=== PATIENT | female | born 1960 | race Caucasian/White ===

== ENCOUNTER 2021-01-31 20:55 | Emergency (ER) | payer OTHER ==
[2021-01-31] MEDS ORDERED: Acetaminophen 500 MG TAB ONE (21:49)
[2021-01-31] MEDS ORDERED: Metoclopramide HCl 10 MG/2 ML VIAL ONE (21:49)
[2021-01-31] MEDS ORDERED: Ketorolac Tromethamine 30 MG/ML VIAL ONE (21:51)
[2021-01-31] MEDS ORDERED: diphenhydrAMINE 12.5 MG/5 ML UDCUP ONE (21:51)
[2021-01-31] MEDS ORDERED: diphenhydrAMINE 50 MG/ML VIAL ONE (21:52)
[2021-01-31 23:13] LABS: ALT (SGPT) 25 U/L (8-55); AST (SGOT) 21 U/L (5-34); Albumin 4.2 g/dL (3.5-5.0); Alkaline Phosphatase 65 U/L (40-110); Anion Gap 17 mmol/L (10-20); BUN (Urea Nitrogen) 29 mg/dL (9.8-20.1); Bilirubin, Total 0.5 mg/dL (0.2-1.2); Calc. Creatinine Clearance 0 mL/min (70-130); Calcium 11.6 mg/dL (7.8-10.44); Carbon Dioxide 23 mmol/L (22-29); Chloride 103 mmol/L (98-107); Globulin 2.4 g/dL (2.4-3.5); Glucose 97 mg/dL (70-105); Potassium 3.7 mmol/L (3.5-5.1); Protein, Total 6.6 g/dL (6.0-8.3); Sodium 139 mmol/L (136-145)
[2021-02-01] MEDS ORDERED: hydrALAZINE 20 MG/ML VIAL ONE (00:37)
== END 2021-02-01 02:21 | disposition short-term general hospital (02) ==
LOC: ERS 20:55
DX: I12.9 Hypertensive chronic kidney disease with stage 1 through stage 4 chronic kidney disease, or unspecified chronic kidney disease (principal); N18.30 Chronic kidney disease, stage 3 unspecified; N17.9 Acute kidney failure, unspecified; E78.5 Hyperlipidemia, unspecified; Z86.73 Personal history of transient ischemic attack (TIA), and cerebral infarction without residual deficits; Z79.899 Other long term (current) drug therapy
CPT/HCPCS: 36415; 80053; 84484; 93005; 96365; 96375; J0360; J1200; J1885; J2765; Q0163

== ENCOUNTER 2021-11-16 12:15 | Inpatient (IN) | payer OTHER, MEDICARE ==
[2021-11-20] MEDS ORDERED: Thrombin 5000 UNITS/5 ML VIAL ONE (06:54)
[2021-11-20] MEDS ORDERED: Fentanyl 250 MCG/5 ML VIAL ONE (06:55)
[2021-11-20] MEDS ORDERED: ceFAZolin (BATCH) 2 GM/100 ML BAG ONE (07:12)
[2021-11-20] MEDS ORDERED: Famotidine/PF 20 mg/2ml Vial ONE (07:23)
[2021-11-20] MEDS ORDERED: Scopolamine 1.5 mg/72 hour Patch ONE (07:23)
[2021-11-20] MEDS ORDERED: Lidocaine 1% PF 5 ML VIAL ONE ×2 (07:24)
[2021-11-20] MEDS ORDERED: Ondansetron PF 4 MG/2 ML Vial ONE (07:24)
[2021-11-20] MEDS ORDERED: Glycopyrrolate 0.2 MG/ML 5 ML SYRINGE ONE (07:24)
[2021-11-20] MEDS ORDERED: Rocuronium Bromide 10 MG/ML (10ML VIAL) ONE (07:24)
[2021-11-20] MEDS ORDERED: diphenhydrAMINE 50 MG/ML VIAL ONE (07:24)
[2021-11-20] MEDS ORDERED: Dexamethasone 20 MG/5 ML VIAL ONE (07:24)
[2021-11-20] MEDS ORDERED: PROPOFOL 200 MG/20 ML VIAL ONE (07:24)
[2021-11-20] MEDS ORDERED: Promethazine HCl 25 MG/ML VIAL IVPB PRN (09:46)
[2021-11-20] MEDS ORDERED: Promethazine HCl 25 MG/ML VIAL IM PRN (09:46)
[2021-11-20] MEDS ORDERED: Ondansetron HCl/PF 4 MG/2 ML Vial IVP PRN (09:46)
[2021-11-20] MEDS ORDERED: Ondansetron PF 4 MG/2 ML Vial IVP PRN (09:55)
[2021-11-20] MEDS ORDERED: Acetaminophen/Codeine 30-300mg Tablet PO PRN (09:55)
[2021-11-20] MEDS ORDERED: HYDROcodone/Acetaminophen 7.5/325 mg Tablet PO PRN (09:55)
[2021-11-20] MEDS ORDERED: traMADol HCl 50 MG TAB PO PRN (09:55)
[2021-11-20] MEDS ORDERED: Acetaminophen 325 MG TAB PO PRN (09:55)
[2021-11-20] MEDS ORDERED: Fentanyl 100 MCG/2 ML VIAL ONE ×3 (10:21→11:34)
[2021-11-20] MEDS: diphenhydrAMINE 25 MG CAP PO PRN (12:33)
[2021-11-20] MEDS: Morphine 2 MG/ML VIAL SLOW IVP PRN ×3 (12:33→21:14)
[2021-11-20] MEDS: Sodium Chloride 0.9% 1,000 ML IV SCH ×2 (13:04→22:55)
[2021-11-20] MEDS: tiZANidine HCl 4 MG TAB PO PRN (13:15)
[2021-11-20] MEDS: Gabapentin 300 MG CAP PO SCH ×2 (13:59→21:16)
[2021-11-20] MEDS: Dexamethasone 1 MG TAB PO SCH ×2 (14:11→21:27)
[2021-11-20] MEDS: ceFAZolin (BATCH) 2 GM in Premix Bag 1 BAG IVPB SCH ×2 (14:11→22:54)
[2021-11-20] MEDS: Cholecalciferol 1,000 UNITS (25 MCG) TAB PO SCH (21:16)
[2021-11-20] MEDS: Losartan 25 MG TAB PO SCH (21:16)
[2021-11-20] MEDS: NIFEdipine XL 60 MG TAB PO SCH (21:16)
[2021-11-20] MEDS: Atorvastatin Calcium 10 MG TAB PO SCH (21:17)
[2021-11-20] MEDS: Carvedilol 6.25 MG TAB PO SCH (21:17)
[2021-11-20] MEDS: Bupropion 100 MG SR TAB PO SCH (21:27)
[2021-11-20] MEDS: hydrALAZINE 20 MG/ML VIAL SLOW IVP PRN (23:26)
[2021-11-21] MEDS: Morphine 2 MG/ML VIAL SLOW IVP PRN ×5 (01:13→19:56)
[2021-11-21] MEDS: diphenhydrAMINE 25 MG CAP PO PRN (04:56)
[2021-11-21] MEDS: hydrALAZINE 20 MG/ML VIAL SLOW IVP PRN (06:45)
[2021-11-21] MEDS: ceFAZolin (BATCH) 2 GM in Premix Bag 1 BAG IVPB SCH ×2 (07:48→14:43)
[2021-11-21] MEDS ORDERED: Labetalol HCl 100 MG/20 ML VIAL SLOW IVP PRN (07:52)
[2021-11-21] MEDS ORDERED: hydrALAZINE 20 MG/ML VIAL SLOW IVP PRN (07:53)
[2021-11-21] MEDS ORDERED: HYDROcodone/Acetaminophen 7.5/325 mg Tablet PO PRN (07:54)
[2021-11-21] MEDS: Bupropion 100 MG SR TAB PO SCH ×2 (09:43→21:00)
[2021-11-21] MEDS: Ascorbic Acid 500 mg Chewable Tablet PO SCH (09:43)
[2021-11-21] MEDS: Cholecalciferol 1,000 UNITS (25 MCG) TAB PO SCH ×2 (09:43→20:59)
[2021-11-21] MEDS: Dexamethasone 1 MG TAB PO SCH ×3 (09:43→21:00)
[2021-11-21] MEDS: Gabapentin 300 MG CAP PO SCH ×3 (09:44→20:58)
[2021-11-21] MEDS: Carvedilol 6.25 MG TAB PO SCH ×2 (09:44→21:04)
[2021-11-21] MEDS ORDERED: cloNIDine 0.1 MG TAB PO SCH (11:00)
[2021-11-21] MEDS: Sodium Chloride 0.9% 1,000 ML IV SCH (12:55)
[2021-11-21] MEDS: tiZANidine HCl 4 MG TAB PO PRN (13:03)
[2021-11-21] MEDS ORDERED: Diazepam 5 MG TAB PO SCH (14:00)
[2021-11-21] MEDS ORDERED: Promethazine 25 MG TAB PO PRN ×2 (19:19→20:15)
[2021-11-21] MEDS: Atorvastatin Calcium 10 MG TAB PO SCH (20:58)
[2021-11-21] MEDS: NIFEdipine XL 60 MG TAB PO SCH (21:03)
[2021-11-21] MEDS: cloNIDine 0.1 MG TAB PO SCH (21:04)
[2021-11-21] MEDS: Losartan 25 MG TAB PO SCH (21:04)
[2021-11-21] MEDS: Diazepam 5 MG TAB PO PRN (23:10)
[2021-11-22] MEDS: Sodium Chloride 0.9% 1,000 ML IV SCH (00:37)
[2021-11-22] MEDS: Morphine 2 MG/ML VIAL SLOW IVP PRN ×2 (02:15→05:30)
[2021-11-22 08:50] VITALS: BP 159/75; TEMP 97.3
[2021-11-22] MEDS: cloNIDine 0.1 MG TAB PO SCH (08:56)
[2021-11-22] MEDS: Carvedilol 6.25 MG TAB PO SCH (08:56)
[2021-11-22] MEDS: Cholecalciferol 1,000 UNITS (25 MCG) TAB PO SCH (08:56)
[2021-11-22] MEDS: Gabapentin 300 MG CAP PO SCH (08:57)
[2021-11-22] MEDS: Dexamethasone 1 MG TAB PO SCH (08:58)
[2021-11-22] MEDS: Ascorbic Acid 500 mg Chewable Tablet PO SCH (08:58)
[2021-11-22] MEDS: Bupropion 100 MG SR TAB PO SCH (08:58)
[2021-11-22] MEDS: Diazepam 5 MG TAB PO PRN (10:12)
== END 2021-11-22 10:43 | disposition home or self-care (01) | DRG 29 ==
LOC: SURG A 11-20 05:45 → MSONC 11-20 12:11
PROVIDERS: ADMIT Surgery; ATTEND Surgery
PROC: 0RG20A0 Fusion of 2 or more Cervical Vertebral Joints with Interbody Fusion Device, Anterior Approach, Anterior Column, Open Approach (ICD-10-PCS; principal; 2021-11-20)
PROC: 0RB30ZZ Excision of Cervical Vertebral Disc, Open Approach (ICD-10-PCS; 2021-11-20)
DX: M54.12 Radiculopathy, cervical region (principal); G99.2 Myelopathy in diseases classified elsewhere; M48.02 Spinal stenosis, cervical region; M50.20 Other cervical disc displacement, unspecified cervical region
CPT/HCPCS: 36415; 76000; 86850; 86900; 86901; 86922; C1713; C1768; C1776; J0360; J0690; J1100; J1200; J2270; J2405; J2704; J3010; J7050; J8540; Q0169; S0028

== ENCOUNTER 2021-12-31 10:20 | Outpatient (CLI) | payer OTHER, MEDICARE | END 2021-12-31 10:21 | disposition home or self-care (01) | LOC: RAD 10:20 | PROVIDERS: ATTEND Surgery | DX: M47.22 Other spondylosis with radiculopathy, cervical region (principal); Z98.1 Arthrodesis status | CPT/HCPCS: 72040 ==

== ENCOUNTER 2022-01-14 11:02 | Outpatient (CLI) | payer OTHER, MEDICARE | END 2022-01-14 11:03 | disposition home or self-care (01) | LOC: RAD 11:02 | PROVIDERS: ATTEND Surgery | DX: M47.26 Other spondylosis with radiculopathy, lumbar region (principal) | CPT/HCPCS: 72100 ==

== ENCOUNTER 2022-04-02 10:41 | Outpatient (CLI) | payer OTHER, MEDICARE ==
[2022-04-02 12:03] LABS: Hemoglobin 11.7 g/dL (12.0-15.5); Mean Corpuscular HGB CONC 32.1 g/dL (32.0-36.0); Mean Corpuscular Hemoglobin 29.7 pg (27.0-33.0); Mean Corpuscular Volume 92.6 fl (81.6-98.3); Mean Platelet Volume 10.1 fl (7.4-10.4); Platelet Count 267 10x3/uL (150-450); RBC Distribution Width 11.9 % (11.5-14.5); Red Blood Cell (RBC) Count 3.94 10x6/uL (3.90-5.03); White Blood Cell (WBC) Count 4.2 10x3/uL (3.5-10.5)
[2022-04-02 12:10] LABS: Anion Gap 13 mmol/L (10-20); BUN (Urea Nitrogen) 22 mg/dL (9.8-20.1); Calc. Creatinine Clearance 0 mL/min (70-130); Calcium 10.9 mg/dL (7.8-10.44); Carbon Dioxide 27 mmol/L (23-31); Chloride 107 mmol/L (98-107); Estimated GFR 42; Glucose 150 mg/dL (80-115); INR-International Normal Ratio 0.9; PTT 21.9 sec (22.0-33.0); Potassium 4.2 mmol/L (3.5-5.1); Prothrombin Time 9.4 sec (9.5-12.1); Sodium 143 mmol/L (136-145)
== END 2022-04-02 10:42 | disposition home or self-care (01) ==
LOC: LABBT 10:41
PROVIDERS: ATTEND Surgery
DX: Z01.818 Encounter for other preprocedural examination (principal); M54.16 Radiculopathy, lumbar region; M48.062 Spinal stenosis, lumbar region with neurogenic claudication; Z20.822 Contact with and (suspected) exposure to COVID-19
CPT/HCPCS: 80048; 85027; 85610; 85730; 87811; 93005; 93010

== ENCOUNTER 2022-04-05 06:05 | Observation (INO) | payer OTHER, MEDICARE ==
[2022-04-03 15:33] VITALS: BMI 33.2
[2022-04-05] MEDS ORDERED: Thrombin 5000 UNITS/5 ML VIAL ONE ×2 (06:34→09:06)
[2022-04-05] MEDS ORDERED: fentaNYL Citrate/PF 100 MCG/2 ML SYRINGE ONE (06:42)
[2022-04-05] MEDS ORDERED: Sodium Chloride 0.9% 100 ML ONE (07:22)
[2022-04-05] MEDS ORDERED: CEFAZOLIN 2 GM VIAL ONE (07:22)
[2022-04-05] MEDS ORDERED: ePHEDrine 50 MG/ML VIAL ONE (07:43)
[2022-04-05] MEDS ORDERED: PROPOFOL 200 MG/20 ML VIAL ONE (07:43)
[2022-04-05] MEDS ORDERED: NEOSTIGMINE 3 MG/3 ML SYR 3 MG/3 ML SYRINGE ONE (07:43)
[2022-04-05] MEDS ORDERED: Lidocaine 1% MPF 2 ML VIAL ONE (07:43)
[2022-04-05] MEDS ORDERED: Ondansetron PF 4 MG/2 ML Vial ONE (07:43)
[2022-04-05] MEDS ORDERED: Dexamethasone 20 MG/5 ML VIAL ONE (07:43)
[2022-04-05] MEDS ORDERED: Glycopyrrolate 0.2 MG/ML 5 ML SYRINGE ONE (07:43)
[2022-04-05] MEDS ORDERED: Rocuronium Bromide 10 MG/ML (10ML VIAL) ONE (07:43)
[2022-04-05] MEDS ORDERED: Phenylephrine 10 MG/ML VIAL ONE (07:43)
[2022-04-05] MEDS ORDERED: Promethazine HCl 25 MG/ML VIAL IVPB PRN (09:31)
[2022-04-05] MEDS ORDERED: Ondansetron HCl/PF 4 MG/2 ML Vial IVP PRN (09:31)
[2022-04-05] MEDS ORDERED: Promethazine HCl 25 MG/ML VIAL IM PRN (09:31)
[2022-04-05] MEDS ORDERED: Fentanyl 100 MCG/2 ML VIAL SLOW IVP PRN (09:34)
[2022-04-05] MEDS ORDERED: Ondansetron PF 4 MG/2 ML Vial IVP PRN (09:34)
[2022-04-05] MEDS ORDERED: traMADol HCl 50 MG TAB PO PRN (09:34)
[2022-04-05] MEDS ORDERED: Acetaminophen 325 MG TAB PO PRN (09:34)
[2022-04-05] MEDS ORDERED: Fentanyl 100 MCG/2 ML VIAL ONE ×2 (09:35→09:50)
[2022-04-05] MEDS ORDERED: hydrALAZINE 20 MG/ML VIAL SLOW IVP PRN (09:38)
[2022-04-05] MEDS ORDERED: Promethazine HCl 25 MG/ML VIAL ONE (09:57)
[2022-04-05] MEDS: Sodium Chloride 0.9% 1,000 ML IV SCH (11:48)
[2022-04-05] MEDS: Ketorolac Tromethamine 30 MG/ML VIAL IVP PRN ×2 (11:48→20:43)
[2022-04-05] MEDS: tiZANidine HCl 4 MG TAB PO PRN (14:04)
[2022-04-05] MEDS: Acetaminophen/Codeine 30-300mg Tablet PO PRN (14:09)
[2022-04-05] MEDS ORDERED: Acetaminophen/Codeine 30-300mg Tablet PO PRN (15:01)
[2022-04-05] MEDS ORDERED: cloNIDine 0.1 MG TAB PO PRN (15:09)
[2022-04-05] MEDS: Gabapentin 300 MG CAP PO SCH ×2 (16:14→20:31)
[2022-04-05] MEDS: CEFAZOLIN 2 GM in Sodium Chloride 0.9% 100 ML IVPB SCH ×2 (16:15→23:42)
[2022-04-05] MEDS: diphenhydrAMINE 25 MG CAP PO PRN ×2 (16:20→22:15)
[2022-04-05] MEDS: Morphine 2 MG/ML VIAL SLOW IVP PRN ×2 (16:20→22:14)
[2022-04-05] MEDS: Mometasone 100 MCG/PUFF (1 INHALER) INH SCH (18:21)
[2022-04-05] MEDS ORDERED: Promethazine HCl 12.5 MG in Sodium Chloride 0.9% 50 ML IVPB PRN (19:08)
[2022-04-05] MEDS: Bupropion 100 MG SR TAB PO SCH (20:32)
[2022-04-05] MEDS: Carvedilol 3.125 MG TAB PO SCH (20:33)
[2022-04-05] MEDS: Cholecalciferol 1,000 UNITS (25 MCG) TAB PO SCH (20:33)
[2022-04-05] MEDS ORDERED: Atorvastatin Calcium 10 MG TAB PO SCH (21:00)
[2022-04-05] MEDS ORDERED: Losartan 25 MG TAB PO SCH (21:00)
[2022-04-05] MEDS ORDERED: NIFEdipine XL 60 MG TAB PO SCH (21:00)
[2022-04-06] MEDS: Sodium Chloride 0.9% 1,000 ML IV SCH ×2 (00:11→07:56)
[2022-04-06] MEDS: diphenhydrAMINE 25 MG CAP PO PRN (04:02)
[2022-04-06] MEDS: Morphine 2 MG/ML VIAL SLOW IVP PRN (04:02)
[2022-04-06] MEDS: Mometasone 100 MCG/PUFF (1 INHALER) INH SCH (07:44)
[2022-04-06] MEDS: Carvedilol 3.125 MG TAB PO SCH (07:50)
[2022-04-06] MEDS: Bupropion 100 MG SR TAB PO SCH (07:50)
[2022-04-06] MEDS: Gabapentin 300 MG CAP PO SCH (07:50)
[2022-04-06] MEDS: Cholecalciferol 1,000 UNITS (25 MCG) TAB PO SCH (07:52)
[2022-04-06] MEDS: HYDROcodone/Acetaminophen 7.5/325 mg Tablet PO PRN ×2 (07:52→13:39)
[2022-04-06] MEDS ORDERED: Ascorbic Acid 500 mg Chewable Tablet PO SCH (09:00)
[2022-04-06] MEDS: tiZANidine HCl 4 MG TAB PO PRN (09:52)
[2022-04-06] MEDS: Acetaminophen/Codeine 30-300mg Tablet PO PRN (09:52)
[2022-04-06 13:45] VITALS: BP 104/66; TEMP 97.8
== END 2022-04-06 14:10 | disposition home or self-care (01) ==
LOC: SDC 06:05 → SURG B 10:53
PROVIDERS: ADMIT Surgery; ATTEND Surgery
PROC: 01NB0ZZ Release Lumbar Nerve, Open Approach (ICD-10-PCS; principal; 2022-04-06)
DX: M48.062 Spinal stenosis, lumbar region with neurogenic claudication (principal); M54.16 Radiculopathy, lumbar region; Z79.82 Long term (current) use of aspirin; Z79.899 Other long term (current) drug therapy; Z88.1 Allergy status to other antibiotic agents
CPT/HCPCS: 76000; 96374; 96375; 96376; G0378; J0690; J1100; J1885; J2270; J2370; J2405; J2550; J2704; J3010; J3370; J3490; J7050; J7620

== ENCOUNTER 2022-06-19 13:33 | Emergency (ER) | payer OTHER ==
[2022-06-19 14:16] LABS: #Lymphocytes 1.4 thou/uL (1.20-3.40); #Monocytes 0.6 thou/uL (0.11-0.59); #Neutrophils 3.2 thou/uL (1.40-6.50); %Basophils 0.2 % (0.0-1.0); %Eosinophils 0.8 % (0.0-10.0); %Lymphocytes 26.3 % (21.0-51.0); %Monocytes 11.2 % (0.0-10.0); %Neutrophils 61.5 % (42.0-75.0); Hemoglobin 10.9 g/dL (12.0-16.0); Mean Corpuscular HGB CONC 33.3 g/dL (32.0-36.0); Mean Corpuscular Hemoglobin 30.9 pg (27.0-31.0); Mean Corpuscular Volume 92.9 fl (78.0-98.0); Mean Platelet Volume 8.6 fL (7.4-10.4); Platelet Count 161 10x3/uL (130-400); RBC Distribution Width 12.1 % (11.5-14.5); Red Blood Cell (RBC) Count 3.51 mill/uL (4.20-5.40); White Blood Cell (WBC) Count 5.2 10x3/uL (4.8-10.8)
[2022-06-19 14:32] LABS: ALT (SGPT) 18 U/L (8-55); AST (SGOT) 15 U/L (5-34); Albumin 4.4 g/dL (3.4-4.8); Alkaline Phosphatase 113 U/L (40-110); Anion Gap 13 mmol/L (10-20); BUN (Urea Nitrogen) 22 mg/dL (9.8-20.1); Bilirubin, Total 0.9 mg/dL (0.2-1.2); Calc. Creatinine Clearance 0 mL/min (70-130); Calcium 10.3 mg/dL (7.8-10.44); Carbon Dioxide 24 mmol/L (23-31); Chloride 105 mmol/L (98-107); Estimated GFR 38; Globulin 2.4 g/dL (2.4-3.5); Glucose 115 mg/dL (80-115); Protein, Total 6.8 g/dL (5.8-8.1); Sodium 138 mmol/L (136-145)
[2022-06-19 14:35] LABS: Troponin I Less than 0.010 ng/mL (< 0.028)
[2022-06-19 16:41] LABS: Magnesium 1.6 mg/dL (1.6-2.6)
== END 2022-06-19 17:09 | disposition home or self-care (01) ==
LOC: ERS 13:33
DX: R25.8 Other abnormal involuntary movements (principal); I12.9 Hypertensive chronic kidney disease with stage 1 through stage 4 chronic kidney disease, or unspecified chronic kidney disease; N18.30 Chronic kidney disease, stage 3 unspecified
CPT/HCPCS: 36415; 70450; 80053; 83735; 84484; 85025; 93005

== ENCOUNTER 2023-03-02 10:52 | Inpatient (IN) | payer OTHER ==
[~2023-03-02 10:52] MED LIST: Iopamidol 370 76% 100 ML VIAL ONE
[2023-03-02] MEDS ORDERED: Aspirin Chewable 81 MG TAB ONE (11:50)
[2023-03-02] MEDS ORDERED: Promethazine HCl 25 MG/ML VIAL ONE (11:50)
[2023-03-02 12:06] LABS: #Monocytes 0.3 thou/uL (0.11-0.59); #Neutrophils 5.4 thou/uL (1.40-6.50); %Basophils 0.4 % (0.0-1.0); %Lymphocytes 14.6 % (21.0-51.0); %Neutrophils 80.1 % (42.0-75.0); Hematocrit 38.7 % (36.0-47.0); Hemoglobin 12.7 g/dL (12.0-16.0); Mean Corpuscular HGB CONC 32.8 g/dL (32.0-36.0); Mean Corpuscular Hemoglobin 30.1 pg (27.0-31.0); Mean Corpuscular Volume 91.7 fl (78.0-98.0); Mean Platelet Volume 9.9 fL (7.4-10.4); Platelet Count 218 10x3/uL (130-400); RBC Distribution Width 12.5 % (11.5-14.5); Red Blood Cell (RBC) Count 4.22 mill/uL (4.20-5.40); White Blood Cell (WBC) Count 6.7 10x3/uL (4.8-10.8)
[2023-03-02 12:26] LABS: INR-International Normal Ratio 0.9; Prothrombin Time 12.4 sec (12.0-14.7)
[2023-03-02 12:33] LABS: ALT (SGPT) 22 U/L (8-55); AST (SGOT) 33 U/L (5-34); Albumin 4.5 g/dL (3.4-4.8); Alkaline Phosphatase 104 U/L (40-110); Anion Gap 17 mmol/L (10-20); BUN (Urea Nitrogen) 19 mg/dL (9.8-20.1); Bilirubin, Total 0.9 mg/dL (0.2-1.2); Calc. Creatinine Clearance 0 mL/min (70-130); Calcium 10.2 mg/dL (7.8-10.44); Carbon Dioxide 20 mmol/L (23-31); Chloride 105 mmol/L (98-107); Estimated GFR 41; Globulin 2.2 g/dL (2.4-3.5); Glucose 157 mg/dL (80-115); Lipase 13 U/L (8-78); Magnesium 1.4 mg/dL (1.6-2.6); Potassium 4.1 mmol/L (3.5-5.1); Protein, Total 6.7 g/dL (5.8-8.1); Sodium 138 mmol/L (136-145)
[2023-03-02] MEDS ORDERED: Nitroglycerin 0.4 MG TAB 1 EACH ONE (12:36)
[2023-03-02 12:47] LABS: PTT 20.8 sec (22.9-36.1)
[2023-03-02 12:50] LABS: CKMB 28.2 ng/mL (0-6.6)
[2023-03-02] MEDS ORDERED: fentaNYL 50 mcg/mL 1 mL Vial ONE ×2 (14:18→16:20)
[2023-03-02] MEDS ORDERED: Ondansetron PF 4 MG/2 ML Vial IVP PRN (14:53)
[2023-03-02] MEDS ORDERED: Bisacodyl 5 MG TAB PO PRN (14:53)
[2023-03-02] MEDS ORDERED: Nitroglycerin 0.4 MG TAB (25 Tab Bottle) SL PRN ×2 (14:53→17:34)
[2023-03-02] MEDS ORDERED: Senokot S 8.6-50 MG TAB PO PRN (14:53)
[2023-03-02] MEDS ORDERED: Heparin 10,000 UNITS/ 10 ML VIAL SLOW IVP SCH (15:00)
[2023-03-02] MEDS ORDERED: Heparin 25,000 units/D5W 500 ML IVPB SCH (15:00)
[2023-03-02] MEDS ORDERED: Nitroglycerin 50 MG/250 ML BOT 0 ML ONE (15:20)
[2023-03-02] MEDS ORDERED: HYDROmorphone 0.5 MG/0.5 ML SYRINGE SLOW IVP PRN (15:39)
[2023-03-02] MEDS ORDERED: Nitroglycerin 50 MG/250 ML BOT 250 ML IVPB SCH (15:45)
[2023-03-02] MEDS ORDERED: Heparin 10,000 UNITS/ 10 ML VIAL ONE ×2 (16:09→16:21)
[2023-03-02] MEDS ORDERED: Heparin 25,000 units/D5W 500 ML ONE (16:09)
[2023-03-02] MEDS ORDERED: Midazolam HCl 2 mg/2 ml Vial ONE ×2 (16:20→17:22)
[2023-03-02] MEDS ORDERED: Nitroglycerin 50 MG/250 ML BOT 250 ML ONE (16:21)
[2023-03-02] MEDS ORDERED: Verapamil 5 MG/2 ML VIAL ONE (16:21)
[2023-03-02] MEDS ORDERED: Adenosine 6 MG/2 ML VIAL ONE (16:21)
[2023-03-02] MEDS ORDERED: Lidocaine 1% (PF) 30 ML VIAL ONE (16:21)
[2023-03-02] MEDS ORDERED: Acetaminophen/Codeine 30-300mg Tablet PO PRN ×2 (17:34)
[2023-03-02] MEDS ORDERED: Sodium Chloride 0.9% 200 ML IV PRN (17:34)
[2023-03-02] MEDS: Promethazine HCl 12.5 MG in Sodium Chloride 0.9% 50 ML IVPB PRN (18:26)
[2023-03-02] MEDS: Sodium Chloride 0.9% 1,000 ML IV SCH (18:27)
[2023-03-02 18:39] LABS: Hematocrit 36.4 % (36.0-47.0); Hemoglobin 11.7 g/dL (12.0-16.0); Platelet Count 246 10x3/uL (130-400)
[2023-03-02 18:43] VITALS: BMI 30.1
[2023-03-02 19:12] LABS: Troponin I 14.243 ng/mL (< 0.028)
[2023-03-02] MEDS ORDERED: Atorvastatin Calcium 40 MG TAB PO SCH (21:00)
[2023-03-02 21:17] LABS: Troponin I 17.149 ng/mL (< 0.028)
[2023-03-02] MEDS ORDERED: diphenhydrAMINE 25 MG CAP PO SCH (23:00)
[2023-03-03] MEDS: Promethazine HCl 12.5 MG in Sodium Chloride 0.9% 50 ML IVPB PRN (00:46)
[2023-03-03] MEDS: Sodium Chloride 0.9% 1,000 ML IV SCH (01:48)
[2023-03-03 07:07] LABS: #Monocytes 0.6 thou/uL (0.11-0.59); #Neutrophils 3.4 thou/uL (1.40-6.50); %Basophils 0.5 % (0.0-1.0); %Lymphocytes 25.9 % (21.0-51.0); %Monocytes 11.1 % (0.0-10.0); %Neutrophils 62.3 % (42.0-75.0); Hematocrit 33.7 % (36.0-47.0); Hemoglobin 10.5 g/dL (12.0-16.0); Mean Corpuscular HGB CONC 31.2 g/dL (32.0-36.0); Mean Corpuscular Hemoglobin 30.2 pg (27.0-31.0); Mean Platelet Volume 9.8 fL (7.4-10.4); Platelet Count 215 10x3/uL (130-400); RBC Distribution Width 12.8 % (11.5-14.5); Red Blood Cell (RBC) Count 3.48 mill/uL (4.20-5.40); White Blood Cell (WBC) Count 5.5 10x3/uL (4.8-10.8)
[2023-03-03 07:15] LABS: Mean Corpuscular Volume 96.8 fl (78.0-98.0)
[2023-03-03 07:30] LABS: Anion Gap 13 mmol/L (10-20); BUN (Urea Nitrogen) 21 mg/dL (9.8-20.1); Calc. Creatinine Clearance 49 mL/min (70-130); Calcium 9.3 mg/dL (7.8-10.44); Carbon Dioxide 19 mmol/L (23-31); Chloride 110 mmol/L (98-107); Cholesterol 103 mg/dl (< 200 Desired); Estimated GFR 47; Glucose 96 mg/dL (80-115); HDL Cholesterol 34 mg/dL (>60 Neg Risk); LDL Cholesterol, Calculated 42 mg/dL; Magnesium 1.5 mg/dL (1.6-2.6); Potassium 3.6 mmol/L (3.5-5.1); Sodium 138 mmol/L (136-145); Triglycerides 134 mg/dL (Less than 150)
[2023-03-03 07:43] LABS: Critical Call Chem Troponin I RESULT DECREASING; Troponin I 10.832 ng/mL (< 0.028)
[2023-03-03 08:05] LABS: ALT (SGPT) 23 U/L (8-55); AST (SGOT) 58 U/L (5-34); Albumin 3.8 g/dL (3.4-4.8); Alkaline Phosphatase 82 U/L (40-110); Bilirubin, Direct 0.5 mg/dL (0.1-0.3); Bilirubin, Total 1.3 mg/dL (0.2-1.2); Protein, Total 5.8 g/dL (5.8-8.1)
[2023-03-03] MEDS ORDERED: traMADol HCl 50 MG TAB PO PRN (08:19)
[2023-03-03] MEDS ORDERED: tiZANidine HCl 4 MG TAB PO PRN (08:35)
[2023-03-03] MEDS ORDERED: Electrolyte Replacement Protocol FS PRN (08:45)
[2023-03-03] MEDS ORDERED: Electrolyte Replacement Protocol 1 EACH FS SCH (08:45)
[2023-03-03] MEDS ORDERED: Lisinopril 5 MG TAB PO SCH (09:00)
[2023-03-03] MEDS ORDERED: Carvedilol 3.125 MG TAB PO SCH (09:00)
[2023-03-03] MEDS ORDERED: Magnesium 2 GM/50 ML(in water) 2 GM in Premix Bag 1 BAG IVPB SCH (09:00)
[2023-03-03] MEDS ORDERED: Aspirin Chewable 81 MG TAB PO SCH (09:00)
[2023-03-03] MEDS: Bupropion 100 MG SR TAB PO SCH ×2 (09:19→20:40)
[2023-03-03] MEDS: Gabapentin 400 MG CAP PO SCH ×3 (09:19→20:38)
[2023-03-03] MEDS: Aspirin 81 mg Enteric Coated Tablet PO SCH (09:19)
[2023-03-03] MEDS: Acetaminophen 325 MG TAB PO PRN (09:22)
[2023-03-03 10:24] LABS: SARS-CoV-2 NAA Rapid Test Not Detected (NotDetected)
[2023-03-03] MEDS ORDERED: cloNIDine 0.1 MG TAB PO PRN (11:58)
[2023-03-03 12:15] LABS: Amphetamine Not Detected (NotDetected); Barbiturates Screen Not Detected (NotDetected); Benzodiazepine Screen Detected (NotDetected); Cocaine Metabolite Screen Not Detected (NotDetected); Methadone Not Detected (NotDetected); Methamphetamine Not Detected (NotDetected); Opiate Screen Not Detected (NotDetected); Oxycodone Screen Not Detected (NotDetected); Phencyclidine (PCP) Not Detected (NotDetected); THC/Cannabinoid Screen Not Detected (NotDetected); Tricyclic Screen Not Detected (NotDetected)
[2023-03-03] MEDS ORDERED: NIFEdipine XL 60 MG TAB PO SCH ×2 (15:30→21:00)
[2023-03-03] MEDS: Carvedilol 6.25 MG TAB PO SCH (16:39)
[2023-03-03] MEDS: Mometasone 100 MCG HFA INHALER (RT USE) INH SCH (19:26)
[2023-03-03] MEDS ORDERED: Losartan 25 MG TAB PO SCH (21:00)
[2023-03-03] MEDS ORDERED: Atorvastatin Calcium 10 MG TAB PO SCH (21:00)
[2023-03-04] MEDS: Mometasone 100 MCG HFA INHALER (RT USE) INH SCH (06:12)
[2023-03-04 06:57] LABS: Anion Gap 13 mmol/L (10-20); BUN (Urea Nitrogen) 17 mg/dL (9.8-20.1); Calc. Creatinine Clearance 49 mL/min (70-130); Calcium 10.1 mg/dL (7.8-10.44); Carbon Dioxide 17 mmol/L (23-31); Chloride 111 mmol/L (98-107); Estimated GFR 48; Glucose 117 mg/dL (80-115); Magnesium 1.9 mg/dL (1.6-2.6); Sodium 137 mmol/L (136-145)
[2023-03-04] MEDS: Carvedilol 6.25 MG TAB PO SCH (07:52)
[2023-03-04] MEDS: Gabapentin 400 MG CAP PO SCH ×2 (07:52→14:58)
[2023-03-04] MEDS: Bupropion 100 MG SR TAB PO SCH (07:52)
[2023-03-04] MEDS: Aspirin 81 mg Enteric Coated Tablet PO SCH (07:53)
[2023-03-04] MEDS ORDERED: Magnesium 2 GM/50 ML(in water) 2 GM in Premix Bag 1 BAG IVPB SCH (08:00)
[2023-03-04] MEDS ORDERED: Losartan 25 MG TAB PO SCH (09:00)
[2023-03-04] MEDS ORDERED: NIFEdipine XL 60 MG TAB PO SCH (09:00)
[2023-03-04 09:05] LABS: #Monocytes 0.3 thou/uL (0.11-0.59); #Neutrophils 2.2 thou/uL (1.40-6.50); %Basophils 0.9 % (0.0-1.0); %Lymphocytes 26.8 % (21.0-51.0); %Monocytes 7.8 % (0.0-10.0); %Neutrophils 64.5 % (42.0-75.0); Hematocrit 34.3 % (36.0-47.0); Hemoglobin 11.4 g/dL (12.0-16.0); Mean Corpuscular HGB CONC 33.2 g/dL (32.0-36.0); Mean Corpuscular Hemoglobin 30.6 pg (27.0-31.0); Mean Corpuscular Volume 92.2 fl (78.0-98.0); Mean Platelet Volume 9.5 fL (7.4-10.4); Platelet Count 206 10x3/uL (130-400); RBC Distribution Width 12.6 % (11.5-14.5); Red Blood Cell (RBC) Count 3.72 mill/uL (4.20-5.40); White Blood Cell (WBC) Count 3.5 10x3/uL (4.8-10.8)
[2023-03-04] MEDS: Acetaminophen 325 MG TAB PO PRN (10:28)
[2023-03-04] MEDS: Promethazine HCl 12.5 MG in Sodium Chloride 0.9% 50 ML IVPB PRN (10:28)
[2023-03-04 11:03] LABS: Troponin I 4.586 ng/mL (< 0.028)
[2023-03-04 11:30] VITALS: BP 142/84
[2023-03-04 16:41] VITALS: TEMP 98.2
[2023-03-05] MEDS ORDERED: NIFEdipine XL 90 MG TAB PO SCH (09:00)
== END 2023-03-04 16:45 | disposition home or self-care (01) | DRG 281 ==
LOC: SUATTDRO 10:52 → ERS 10:52 → SDC 16:40 → CCU 17:44
PROVIDERS: ADMIT Family Medicine; ATTEND Internal Medicine Critical Care Medicine
PROC: 4A023N7 Measurement of Cardiac Sampling and Pressure, Left Heart, Percutaneous Approach (ICD-10-PCS; principal; 2023-03-02)
PROC: B2111ZZ Fluoroscopy of Multiple Coronary Arteries using Low Osmolar Contrast (ICD-10-PCS; 2023-03-02)
PROC: B2151ZZ Fluoroscopy of Left Heart using Low Osmolar Contrast (ICD-10-PCS; 2023-03-02)
DX: I21.4 Non-ST elevation (NSTEMI) myocardial infarction (principal); K86.1 Other chronic pancreatitis; I12.9 Hypertensive chronic kidney disease with stage 1 through stage 4 chronic kidney disease, or unspecified chronic kidney disease; Z96.612 Presence of left artificial shoulder joint; E78.5 Hyperlipidemia, unspecified; E83.42 Hypomagnesemia; I16.0 Hypertensive urgency; I25.110 Atherosclerotic heart disease of native coronary artery with unstable angina pectoris; F32.A Depression, unspecified; Z20.822 Contact with and (suspected) exposure to COVID-19; N18.32 Chronic kidney disease, stage 3b; Z79.899 Other long term (current) drug therapy; Z79.82 Long term (current) use of aspirin; Z88.1 Allergy status to other antibiotic agents; Z88.8 Allergy status to other drugs, medicaments and biological substances; Z88.5 Allergy status to narcotic agent; Z86.73 Personal history of transient ischemic attack (TIA), and cerebral infarction without residual deficits; Z90.710 Acquired absence of both cervix and uterus; Z90.49 Acquired absence of other specified parts of digestive tract
CPT/HCPCS: 36415; 71045; 80048; 80053; 80061; 80076; 80306; 82553; 83690; 83735; 84443; 84484; 85025; 85347; 85610; 85730; 86850; 86870; 86900; 86901; 93005; 93458; 93798; 94664; 94760; 96365; 96368; 96372; 96375; 96376; 99152; C1760; C1769; C1894; J0153; J1170; J1644; J2001; J2250; J2550; J3010; J3475; J7050; Q9967; U0002

== ENCOUNTER 2023-03-10 07:00 | Inpatient (IN) | payer OTHER ==
[2023-03-10 07:52] LABS: #Basophils 0.1 thou/uL (0.0-0.2); #Monocytes 0.6 thou/uL (0.11-0.59); #Neutrophils 4.6 thou/uL (1.40-6.50); %Basophils 0.8 % (0.0-1.0); %Eosinophils 0.6 % (0.0-10.0); %Lymphocytes 19.6 % (21.0-51.0); %Neutrophils 69.8 % (42.0-75.0); Hematocrit 38.7 % (36.0-47.0); Hemoglobin 12.5 g/dL (12.0-16.0); Mean Corpuscular HGB CONC 32.3 g/dL (32.0-36.0); Mean Platelet Volume 9.4 fL (7.4-10.4); Platelet Count 278 10x3/uL (130-400); RBC Distribution Width 12.5 % (11.5-14.5); Red Blood Cell (RBC) Count 4.16 mill/uL (4.20-5.40); White Blood Cell (WBC) Count 6.6 10x3/uL (4.8-10.8)
[2023-03-10] MEDS ORDERED: Promethazine HCl 25 MG/ML VIAL ONE ×2 (07:53→08:45)
[2023-03-10 08:15] LABS: ALT (SGPT) 16 U/L (8-55); AST (SGOT) 17 U/L (5-34); Albumin 4.5 g/dL (3.4-4.8); Alkaline Phosphatase 90 U/L (40-110); Anion Gap 17 mmol/L (10-20); BUN (Urea Nitrogen) 27 mg/dL (9.8-20.1); Bilirubin, Total 0.7 mg/dL (0.2-1.2); Calc. Creatinine Clearance 0 mL/min (70-130); Carbon Dioxide 20 mmol/L (23-31); Chloride 106 mmol/L (98-107); Estimated GFR 23; Globulin 2.2 g/dL (2.4-3.5); Glucose 122 mg/dL (80-115); Lipase 59 U/L (8-78); Potassium 4.2 mmol/L (3.5-5.1); Protein, Total 6.7 g/dL (5.8-8.1); Sodium 139 mmol/L (136-145)
[2023-03-10] MEDS ORDERED: Aspirin Chewable 81 MG TAB ONE (08:30)
[2023-03-10] MEDS ORDERED: Nitroglycerin 0.4 MG TAB 1 EACH ONE ×2 (08:35→08:36)
[2023-03-10 08:44] LABS: Troponin I 0.263 ng/mL (< 0.028)
[2023-03-10] MEDS ORDERED: Dextrose 5% in Water 1,000 ML IV PRN (10:47)
[2023-03-10] MEDS ORDERED: Glucagon 1 MG/ML KIT IM PRN (10:47)
[2023-03-10] MEDS ORDERED: Insulin Regular 300 UNITS/3 ML VIAL SC PRN (10:47)
[2023-03-10] MEDS ORDERED: Dextrose 50% Abboject 50 ML SYRINGE SLOW IVP PRN (10:47)
[2023-03-10] MEDS ORDERED: Promethazine 25 MG TAB PO PRN (10:49)
[2023-03-10] MEDS ORDERED: Nitroglycerin 0.4 MG TAB (25 Tab Bottle) SL PRN (10:51)
[2023-03-10 11:14] VITALS: BMI 29.2
[2023-03-10] MEDS: Sodium Chloride 0.9% 1,000 ML IV SCH (11:40)
[2023-03-10] MEDS: Carvedilol 3.125 MG TAB PO SCH (16:12)
[2023-03-10] MEDS: Acetaminophen 325 MG TAB PO PRN (16:16)
[2023-03-10 17:26] LABS: Troponin I 6.633 ng/mL (< 0.028)
[2023-03-10] MEDS: Colchicine 0.6 MG TAB PO SCH (20:27)
[2023-03-10] MEDS: Atorvastatin Calcium 10 MG TAB PO SCH (20:27)
[2023-03-10 20:40] LABS: Troponin I 7.572 ng/mL (< 0.028)
[2023-03-11] MEDS: Sodium Chloride 0.9% 1,000 ML IV SCH ×3 (00:45→17:35)
[2023-03-11 01:09] LABS: Troponin I 14.808 ng/mL (< 0.028)
[2023-03-11 04:37] LABS: #Monocytes 0.7 thou/uL (0.11-0.59); #Neutrophils 3.3 thou/uL (1.40-6.50); %Basophils 0.5 % (0.0-1.0); %Lymphocytes 28.8 % (21.0-51.0); %Monocytes 12.2 % (0.0-10.0); %Neutrophils 58.3 % (42.0-75.0); Hematocrit 34.7 % (36.0-47.0); Hemoglobin 11.2 g/dL (12.0-16.0); Mean Corpuscular HGB CONC 32.3 g/dL (32.0-36.0); Mean Corpuscular Hemoglobin 30.1 pg (27.0-31.0); Mean Corpuscular Volume 93.3 fl (78.0-98.0); Mean Platelet Volume 9.5 fL (7.4-10.4); Platelet Count 258 10x3/uL (130-400); RBC Distribution Width 12.5 % (11.5-14.5); Red Blood Cell (RBC) Count 3.72 mill/uL (4.20-5.40); White Blood Cell (WBC) Count 5.6 10x3/uL (4.8-10.8)
[2023-03-11 05:01] LABS: Anion Gap 13 mmol/L (10-20); BUN (Urea Nitrogen) 23 mg/dL (9.8-20.1); Calc. Creatinine Clearance 38 mL/min (70-130); Calcium 9.9 mg/dL (7.8-10.44); Carbon Dioxide 22 mmol/L (23-31); Chloride 107 mmol/L (98-107); Estimated GFR 35; Glucose 112 mg/dL (80-115); Potassium 3.3 mmol/L (3.5-5.1); Sodium 139 mmol/L (136-145)
[2023-03-11] MEDS: Carvedilol 3.125 MG TAB PO SCH ×2 (09:21→16:45)
[2023-03-11] MEDS: NIFEdipine XL 90 MG TAB PO SCH (09:21)
[2023-03-11] MEDS: Aspirin 325 mg Enteric Coated Tablet PO SCH (09:22)
[2023-03-11] MEDS: Colchicine 0.6 MG TAB PO SCH ×2 (09:22→21:49)
[2023-03-11 13:35] LABS: Troponin I 7.962 ng/mL (< 0.028)
[2023-03-11] MEDS: Acetaminophen 325 MG TAB PO PRN (17:02)
[2023-03-11] MEDS ORDERED: Melatonin 3 MG TAB PO PRN (17:05)
[2023-03-11] MEDS: Atorvastatin Calcium 10 MG TAB PO SCH (21:49)
[2023-03-12] MEDS: Acetaminophen 325 MG TAB PO PRN ×3 (00:10→21:42)
[2023-03-12] MEDS: Sodium Chloride 0.9% 1,000 ML IV SCH (06:07)
[2023-03-12] MEDS: Aspirin 325 mg Enteric Coated Tablet PO SCH (09:12)
[2023-03-12] MEDS: NIFEdipine XL 90 MG TAB PO SCH (09:12)
[2023-03-12] MEDS: Colchicine 0.6 MG TAB PO SCH ×2 (09:13→21:42)
[2023-03-12] MEDS: Carvedilol 3.125 MG TAB PO SCH ×2 (09:13→17:22)
[2023-03-12 10:06] LABS: Anion Gap 16 mmol/L (10-20); BUN (Urea Nitrogen) 12 mg/dL (9.8-20.1); Calc. Creatinine Clearance 50 mL/min (70-130); Calcium 8.8 mg/dL (7.8-10.44); Carbon Dioxide 17 mmol/L (23-31); Chloride 111 mmol/L (98-107); Estimated GFR 49; Glucose 113 mg/dL (80-115); Potassium 3.7 mmol/L (3.5-5.1); Sodium 140 mmol/L (136-145)
[2023-03-12 12:02] LABS: SARS-CoV-2 NAA Rapid Test Not Detected (NotDetected)
[2023-03-12] MEDS ORDERED: Zolpidem Tartrate 5 MG TAB PO PRN (13:27)
[2023-03-12] MEDS ORDERED: Calcium Carbonate 500 MG ChewTAB PO PRN (18:49)
[2023-03-12] MEDS: Atorvastatin Calcium 10 MG TAB PO SCH (21:42)
[2023-03-13 08:23] LABS: #Monocytes 0.4 thou/uL (0.11-0.59); %Lymphocytes 35.9 % (21.0-51.0); %Monocytes 10.9 % (0.0-10.0); %Neutrophils 51.2 % (42.0-75.0); Hematocrit 36.2 % (36.0-47.0); Hemoglobin 11.9 g/dL (12.0-16.0); Mean Corpuscular HGB CONC 32.9 g/dL (32.0-36.0); Mean Corpuscular Hemoglobin 29.8 pg (27.0-31.0); Mean Corpuscular Volume 90.7 fl (78.0-98.0); Mean Platelet Volume 9.8 fL (7.4-10.4); Platelet Count 202 10x3/uL (130-400); RBC Distribution Width 12.6 % (11.5-14.5); Red Blood Cell (RBC) Count 3.99 mill/uL (4.20-5.40); White Blood Cell (WBC) Count 3.8 10x3/uL (4.8-10.8)
[2023-03-13 09:03] LABS: Anion Gap 14 mmol/L (10-20); BUN (Urea Nitrogen) 8 mg/dL (9.8-20.1); Calc. Creatinine Clearance 49 mL/min (70-130); Calcium 9.9 mg/dL (7.8-10.44); Carbon Dioxide 21 mmol/L (23-31); Chloride 107 mmol/L (98-107); Estimated GFR 47; Glucose 119 mg/dL (80-115); Potassium 4.8 mmol/L (3.5-5.1); Sodium 137 mmol/L (136-145)
[2023-03-13] MEDS: Carvedilol 3.125 MG TAB PO SCH (09:16)
[2023-03-13] MEDS: Colchicine 0.6 MG TAB PO SCH (09:16)
[2023-03-13] MEDS: NIFEdipine XL 90 MG TAB PO SCH (09:16)
[2023-03-13] MEDS: Aspirin 325 mg Enteric Coated Tablet PO SCH (09:16)
[2023-03-13 11:25] VITALS: BP 137/92; TEMP 98.8
== END 2023-03-13 14:57 | disposition home or self-care (01) | DRG 281 ==
LOC: ERS 07:00 → 2NO 09:42
PROVIDERS: ADMIT Family Medicine; ATTEND Hospitalist
DX: I31.9 Disease of pericardium, unspecified (principal); I21.4 Non-ST elevation (NSTEMI) myocardial infarction; N17.9 Acute kidney failure, unspecified; I25.10 Atherosclerotic heart disease of native coronary artery without angina pectoris; R07.9 Chest pain, unspecified; N18.30 Chronic kidney disease, stage 3 unspecified; E11.22 Type 2 diabetes mellitus with diabetic chronic kidney disease; R11.0 Nausea; Z20.822 Contact with and (suspected) exposure to COVID-19; R19.7 Diarrhea, unspecified; I12.9 Hypertensive chronic kidney disease with stage 1 through stage 4 chronic kidney disease, or unspecified chronic kidney disease; E78.5 Hyperlipidemia, unspecified; Z79.899 Other long term (current) drug therapy; Z79.82 Long term (current) use of aspirin; Z98.890 Other specified postprocedural states; Z86.73 Personal history of transient ischemic attack (TIA), and cerebral infarction without residual deficits; Z88.6 Allergy status to analgesic agent; Z88.1 Allergy status to other antibiotic agents; Z88.8 Allergy status to other drugs, medicaments and biological substances; Z90.710 Acquired absence of both cervix and uterus; Z90.49 Acquired absence of other specified parts of digestive tract
CPT/HCPCS: 36415; 36416; 71045; 71250; 76536; 76770; 80048; 80053; 83690; 84484; 85025; 85379; 93005; 93306; 94760; 96365; 96366; J1650; J2550; J7050; Q0169; U0002

== ENCOUNTER 2023-03-19 11:06 | Outpatient (CLI) | payer OTHER | END 2023-03-19 11:07 | disposition home or self-care (01) | LOC: RAD 11:06 | PROVIDERS: ATTEND Surgery | DX: M54.2 Cervicalgia (principal); M54.89 Other dorsalgia; M47.812 Spondylosis without myelopathy or radiculopathy, cervical region; Z98.1 Arthrodesis status | CPT/HCPCS: 72050 ==

== ENCOUNTER 2023-03-21 07:55 | Day surgery (SDC) | payer OTHER ==
[2023-03-19 13:38] VITALS: BMI 28.9
== END 2023-03-21 09:30 | disposition home or self-care (01) ==
LOC: MRI 07:55
PROVIDERS: ATTEND Surgery
DX: M54.50 Low back pain, unspecified (principal); M54.2 Cervicalgia; I10 Essential (primary) hypertension; K85.90 Acute pancreatitis without necrosis or infection, unspecified; D64.9 Anemia, unspecified; J45.909 Unspecified asthma, uncomplicated; F41.9 Anxiety disorder, unspecified; F32.A Depression, unspecified; E11.9 Type 2 diabetes mellitus without complications; J98.4 Other disorders of lung; M48.02 Spinal stenosis, cervical region; Z88.1 Allergy status to other antibiotic agents; Z88.5 Allergy status to narcotic agent; Z90.49 Acquired absence of other specified parts of digestive tract; Z90.89 Acquired absence of other organs; Z96.612 Presence of left artificial shoulder joint; Z98.41 Cataract extraction status, right eye; Z98.42 Cataract extraction status, left eye; Z87.891 Personal history of nicotine dependence; Z79.84 Long term (current) use of oral hypoglycemic drugs; Z79.82 Long term (current) use of aspirin; Z79.899 Other long term (current) drug therapy
CPT/HCPCS: 72125

== ENCOUNTER 2023-05-05 09:40 | Day surgery (SDC) | payer OTHER ==
[2023-05-05] MEDS ORDERED: fentaNYL 50 mcg/mL 1 mL Vial ONE ×2 (11:09→12:40)
[2023-05-05] MEDS ORDERED: Famotidine/PF 20 mg/2ml Vial ONE (11:09)
[2023-05-05] MEDS ORDERED: PROPOFOL 200 MG/20 ML VIAL ONE (11:42)
[2023-05-05] MEDS ORDERED: Dexamethasone 20 MG/5 ML VIAL ONE (11:42)
[2023-05-05] MEDS ORDERED: Lidocaine 1% PF 5 ML VIAL ONE (11:42)
[2023-05-05] MEDS ORDERED: Carvedilol 6.25 MG TAB PO SCH ×2 (14:00→21:00)
== END 2023-05-05 14:30 | disposition home or self-care (01) ==
LOC: SDC/OP 09:40
PROVIDERS: ATTEND Surgery
DX: M47.812 Spondylosis without myelopathy or radiculopathy, cervical region (principal); M50.31 Other cervical disc degeneration, high cervical region; I10 Essential (primary) hypertension; K85.90 Acute pancreatitis without necrosis or infection, unspecified; D64.9 Anemia, unspecified; J45.909 Unspecified asthma, uncomplicated; F41.9 Anxiety disorder, unspecified; F32.A Depression, unspecified; E11.9 Type 2 diabetes mellitus without complications; J98.4 Other disorders of lung; M48.02 Spinal stenosis, cervical region; Z88.1 Allergy status to other antibiotic agents; Z88.5 Allergy status to narcotic agent; Z90.49 Acquired absence of other specified parts of digestive tract; Z90.89 Acquired absence of other organs; Z96.612 Presence of left artificial shoulder joint; Z98.41 Cataract extraction status, right eye; Z98.42 Cataract extraction status, left eye; Z87.891 Personal history of nicotine dependence; Z79.84 Long term (current) use of oral hypoglycemic drugs; Z79.82 Long term (current) use of aspirin; Z79.899 Other long term (current) drug therapy; Z98.1 Arthrodesis status
CPT/HCPCS: 72141; J1100; J2704; J3010; S0028

== ENCOUNTER 2023-12-18 08:05 | Inpatient (IN) | payer OTHER ==
[2023-12-18 09:01] LABS: #Basophils Less than 0.03 10x3/uL (0.0-0.2); #Eosinphils Less than 0.03 10x3/uL (0.0-0.7); %Basophils 0.3 % (0.0-1.0); %Lymphocytes 24.8 % (21.0-51.0); %Monocytes 8.7 % (0.0-10.0); Hematocrit 37.2 % (36.0-47.0); Hemoglobin 12.1 g/dL (12.0-16.0); Mean Corpuscular HGB CONC 32.5 g/dL (32.0-36.0); Mean Corpuscular Hemoglobin 30.6 pg (27.0-31.0); Mean Corpuscular Volume 94.2 fL (78.0-98.0); Mean Platelet Volume 9.8 fL (7.4-10.4); Platelet Count 242 10x3/uL (130-400); RBC Distribution Width 12.4 % (11.5-14.5); Red Blood Cell (RBC) Count 3.95 mill/uL (4.20-5.40)
[2023-12-18 09:20] LABS: Chloride 106 mmol/L (98-107); Potassium 3.9 mmol/L (3.5-5.1); Sodium 141 mmol/L (136-145)
[2023-12-18 09:21] LABS: Troponin I 0.012 ng/mL (< 0.028)
[2023-12-18 09:26] LABS: ALT (SGPT) 21 U/L (8-55); AST (SGOT) 18 U/L (5-34); Albumin 3.9 g/dL (3.4-4.8); Alkaline Phosphatase 103 U/L (40-110); Anion Gap 13 mmol/L (10-20); BUN (Urea Nitrogen) 25 mg/dL (9.8-20.1); Bilirubin, Total 0.9 mg/dL (0.2-1.2); Calc. Creatinine Clearance 0 mL/min (70-130); Calcium 10.8 mg/dL (7.8-10.44); Carbon Dioxide 25 mmol/L (23-31); Estimated GFR 29; Globulin 2.8 g/dL (2.4-3.5); Glucose 179 mg/dL (80-115); Lipase 32 U/L (8-78); Protein, Total 6.7 g/dL (5.8-8.1)
[2023-12-18] MEDS ORDERED: Aspirin Chewable 81 MG TAB ONE (09:59)
[2023-12-18] MEDS ORDERED: Labetalol HCl 100 MG/20 ML VIAL ONE (09:59)
[2023-12-18] MEDS ORDERED: Morphine 4 MG/ML VIAL ONE ×2 (11:30→12:13)
[2023-12-18] MEDS ORDERED: diphenhydrAMINE 50 MG/ML VIAL ONE ×2 (11:34→13:20)
[2023-12-18] MEDS ORDERED: Dextrose 5% in Water 1,000 ML IV PRN (12:05)
[2023-12-18] MEDS ORDERED: Acetaminophen 325 MG TAB PO PRN (12:05)
[2023-12-18] MEDS ORDERED: Dextrose 50% Abboject 50 ML SYRINGE SLOW IVP PRN (12:05)
[2023-12-18] MEDS ORDERED: Insulin Regular 300 UNITS/3 ML VIAL SC PRN (12:05)
[2023-12-18] MEDS ORDERED: Glucagon 1 MG/ML KIT IM PRN (12:05)
[2023-12-18] MEDS ORDERED: hydrALAZINE 20 MG/ML VIAL SLOW IVP PRN (12:12)
[2023-12-18] MEDS: Morphine 4 MG/ML VIAL SLOW IVP SCH (12:50)
[2023-12-18] MEDS: NIFEdipine XL 60 MG ER.TAB PO SCH (13:00)
[2023-12-18] MEDS: Sodium Chloride 0.9% 1,000 ML IV SCH (13:15)
[2023-12-18] MEDS: Isosorbide Mononitrate 60 MG ER.TAB PO SCH (13:17)
[2023-12-18] MEDS: diphenhydrAMINE 50 MG/ML VIAL IVP PRN (13:18)
[2023-12-18 14:28] LABS: Troponin I 0.287 ng/mL (< 0.028)
[2023-12-18] MEDS ORDERED: traMADol HCl 50 MG TAB PO PRN (15:56)
[2023-12-18 16:06] VITALS: BMI 26.8
[2023-12-18] MEDS ORDERED: traMADol HCl 50 MG TAB ONE (16:14)
[2023-12-18 16:16] LABS: Critical Call Chem Troponin I RESULT DECREASING; Troponin I 0.273 ng/mL (< 0.028)
[2023-12-18] MEDS: Carvedilol 3.125 MG TAB PO SCH (20:22)
[2023-12-18] MEDS: Colchicine 0.6 MG TAB PO SCH (20:23)
[2023-12-18] MEDS: Atorvastatin Calcium 10 MG TAB PO SCH (20:23)
[2023-12-18] MEDS: Famotidine/PF 20 mg/2ml Vial SLOW IVP SCH (20:23)
[2023-12-18] MEDS: fentaNYL 50 mcg/mL 1 mL Vial SLOW IVP PRN (20:41)
[2023-12-18] MEDS ORDERED: Carvedilol 3.125 MG TAB PO SCH (21:00)
[2023-12-18] MEDS: Promethazine 25 MG TAB PO SCH (21:56)
[2023-12-19] MEDS: Nitroglycerin 0.4 MG TAB (25 Tab Bottle) SL PRN (04:01)
[2023-12-19] MEDS: fentaNYL 50 mcg/mL 1 mL Vial SLOW IVP SCH (05:13)
[2023-12-19 05:47] LABS: #Basophils Less than 0.03 10x3/uL (0.0-0.2); #Eosinphils Less than 0.03 10x3/uL (0.0-0.7); %Basophils 0.4 % (0.0-1.0); %Eosinophils 0.4 % (0.0-10.0); %Lymphocytes 32.8 % (21.0-51.0); %Monocytes 10.7 % (0.0-10.0); %Neutrophils 55.5 % (42.0-75.0); Hemoglobin 10.8 g/dL (12.0-16.0); Mean Corpuscular HGB CONC 31.8 g/dL (32.0-36.0); Mean Corpuscular Volume 94.4 fL (78.0-98.0); Platelet Count 200 10x3/uL (130-400); RBC Distribution Width 12.6 % (11.5-14.5)
[2023-12-19 06:10] LABS: ALT (SGPT) 26 U/L (8-55); AST (SGOT) 41 U/L (5-34); Albumin 3.3 g/dL (3.4-4.8); Alkaline Phosphatase 105 U/L (40-110); Anion Gap 13 mmol/L (10-20); BUN (Urea Nitrogen) 22 mg/dL (9.8-20.1); Bilirubin, Total 0.6 mg/dL (0.2-1.2); Calc. Creatinine Clearance 41 mL/min (70-130); Calcium 8.9 mg/dL (7.8-10.44); Carbon Dioxide 21 mmol/L (23-31); Chloride 111 mmol/L (98-107); Estimated GFR 35; Globulin 2.2 g/dL (2.4-3.5); Glucose 148 mg/dL (80-115); Potassium 3.2 mmol/L (3.5-5.1); Protein, Total 5.5 g/dL (5.8-8.1); Sodium 142 mmol/L (136-145)
[2023-12-19] MEDS ORDERED: Aspirin 81 mg Enteric Coated Tablet PO SCH (09:00)
[2023-12-19] MEDS: Potassium Chloride 20 MEQ TAB PO SCH (09:08)
[2023-12-19] MEDS: Enoxaparin 40 MG (0.4 mL) SYRINGE SC SCH (09:08)
[2023-12-19] MEDS: Isosorbide Mononitrate 60 MG ER.TAB PO SCH (09:09)
[2023-12-19] MEDS: NIFEdipine XL 60 MG ER.TAB PO SCH (09:09)
[2023-12-19] MEDS: Magnesium 2 GM/50 ML(in water) 2 GM in Premix 1 BAG IVPB SCH (09:09)
[2023-12-19] MEDS: Aspirin Chewable 81 MG TAB PO SCH (09:09)
[2023-12-19] MEDS: traMADol HCl 50 MG TAB PO PRN (11:59)
[2023-12-19] MEDS ORDERED: Ibuprofen 600 MG TAB PO SCH (13:19)
[2023-12-19] MEDS: Morphine 4 MG/ML VIAL SLOW IVP PRN (13:58)
[2023-12-19] MEDS: Pantoprazole DR 40 MG TAB PO SCH (13:59)
[2023-12-19] MEDS: Ondansetron ODT 4 MG TAB PO PRN (15:35)
[2023-12-19] MEDS: Calamine/Zinc Oxide 177 ML LOTION TP SCH ×2 (18:12→21:26)
[2023-12-19] MEDS: Promethazine HCl 25 MG in Sodium Chloride 0.9% 50 ML IVPB PRN (18:29)
[2023-12-19] MEDS: HYDROcodone/Acetaminophen 10/325 mg Tablet PO PRN (20:32)
[2023-12-19] MEDS ORDERED: Calamine/Zinc Oxide 177 ML LOTION TP SCH (21:00)
[2023-12-20 05:31] LABS: #Basophils Less than 0.03 10x3/uL (0.0-0.2); #Eosinphils Less than 0.03 10x3/uL (0.0-0.7); %Basophils 0.5 % (0.0-1.0); %Lymphocytes 38.3 % (21.0-51.0); %Monocytes 12.2 % (0.0-10.0); Hemoglobin 10.7 g/dL (12.0-16.0); Mean Corpuscular HGB CONC 31.5 g/dL (32.0-36.0); Mean Corpuscular Hemoglobin 30.4 pg (27.0-31.0); Mean Corpuscular Volume 96.6 fL (78.0-98.0); Mean Platelet Volume 9.7 fL (7.4-10.4); Platelet Count 188 10x3/uL (130-400); RBC Distribution Width 12.5 % (11.5-14.5); Red Blood Cell (RBC) Count 3.52 mill/uL (4.20-5.40)
[2023-12-20 05:46] LABS: Anion Gap 14 mmol/L (10-20); BUN (Urea Nitrogen) 13 mg/dL (9.8-20.1); Calc. Creatinine Clearance 55 mL/min (70-130); Carbon Dioxide 20 mmol/L (23-31); Chloride 111 mmol/L (98-107); Estimated GFR 50; Glucose 115 mg/dL (80-115); Potassium 3.8 mmol/L (3.5-5.1); Sodium 141 mmol/L (136-145)
[2023-12-20] MEDS: Pantoprazole DR 40 MG TAB PO SCH (08:39)
[2023-12-20] MEDS ORDERED: Famotidine/PF 20 mg/2ml Vial SLOW IVP SCH (09:00)
[2023-12-20] MEDS ORDERED: ADENOSINE 60 MG/20 ML SDV ONE (11:35)
[2023-12-20] MEDS ORDERED: Ondansetron PF 4 MG/2 ML Vial IVP PRN (12:13)
[2023-12-20] MEDS: diphenhydrAMINE 50 MG/ML VIAL IVP SCH (14:39)
[2023-12-20] MEDS: Promethazine 25 MG TAB PO SCH (18:34)
[2023-12-21 04:35] LABS: #Basophils Less than 0.03 10x3/uL (0.0-0.2); #Eosinphils Less than 0.03 10x3/uL (0.0-0.7); %Basophils 0.4 % (0.0-1.0); %Lymphocytes 28.5 % (21.0-51.0); %Monocytes 11.5 % (0.0-10.0); %Neutrophils 59.6 % (42.0-75.0); Hematocrit 36.4 % (36.0-47.0); Hemoglobin 11.8 g/dL (12.0-16.0); Mean Corpuscular HGB CONC 32.4 g/dL (32.0-36.0); Mean Corpuscular Hemoglobin 29.6 pg (27.0-31.0); Mean Corpuscular Volume 91.5 fL (78.0-98.0); Mean Platelet Volume 9.5 fL (7.4-10.4); Platelet Count 191 10x3/uL (130-400); RBC Distribution Width 12.3 % (11.5-14.5); Red Blood Cell (RBC) Count 3.98 mill/uL (4.20-5.40)
[2023-12-21 04:47] LABS: Anion Gap 13 mmol/L (10-20); BUN (Urea Nitrogen) 10 mg/dL (9.8-20.1); Calc. Creatinine Clearance 63 mL/min (70-130); Calcium 9.5 mg/dL (7.8-10.44); Carbon Dioxide 21 mmol/L (23-31); Chloride 111 mmol/L (98-107); Estimated GFR 58; Glucose 103 mg/dL (80-115); Potassium 3.3 mmol/L (3.5-5.1); Sodium 142 mmol/L (136-145)
[2023-12-21] MEDS: Promethazine HCl 25 MG in Sodium Chloride 0.9% 50 ML IVPB PRN (09:35)
[2023-12-21] MEDS: dilTIAZem CD 120 MG CAP PO SCH (09:38)
[2023-12-21] MEDS: Potassium Chloride 20 MEQ TAB PO SCH (09:43)
[2023-12-21] MEDS: Losartan 25 MG TAB PO SCH (09:43)
[2023-12-21 13:07] VITALS: BP 149/70; TEMP 98.4
== END 2023-12-21 14:07 | disposition home or self-care (01) | DRG 281 ==
LOC: ERS 08:05 → ERHOLD 12:08 → 2SW 19:44 → OBSVTOIN 12-19 10:31
PROVIDERS: ADMIT Internal Medicine; ATTEND Internal Medicine
DX: I31.9 Disease of pericardium, unspecified (principal); N17.9 Acute kidney failure, unspecified; I21.4 Non-ST elevation (NSTEMI) myocardial infarction; I73.9 Peripheral vascular disease, unspecified; R07.89 Other chest pain; I25.2 Old myocardial infarction; I12.9 Hypertensive chronic kidney disease with stage 1 through stage 4 chronic kidney disease, or unspecified chronic kidney disease; N18.30 Chronic kidney disease, stage 3 unspecified; E78.5 Hyperlipidemia, unspecified; Z88.1 Allergy status to other antibiotic agents; Z88.5 Allergy status to narcotic agent; Z79.82 Long term (current) use of aspirin; E11.22 Type 2 diabetes mellitus with diabetic chronic kidney disease; Z98.890 Other specified postprocedural states; I16.0 Hypertensive urgency; D63.1 Anemia in chronic kidney disease; E83.52 Hypercalcemia
CPT/HCPCS: 36415; 36416; 71045; 78452; 80048; 80053; 83690; 84484; 85025; 93005; 93017; 93306; 96361; 96372; 96374; 96375; 96376; A9502; G0378; J0153; J1200; J1650; J2270; J2550; J3010; J3475; J7050; Q0162; Q0169; S0028

== ENCOUNTER 2024-02-21 08:28 | Emergency (ER) | payer OTHER ==
[2024-02-21] MEDS ORDERED: HYDROcodone/Acetaminophen 5/325 mg Tablet ONE (09:09)
== END 2024-02-21 10:55 | disposition home or self-care (01) ==
LOC: ERS 08:28
DX: S80.02XA Contusion of left knee, initial encounter (principal); S60.222A Contusion of left hand, initial encounter; S50.02XA Contusion of left elbow, initial encounter; E78.5 Hyperlipidemia, unspecified; I12.9 Hypertensive chronic kidney disease with stage 1 through stage 4 chronic kidney disease, or unspecified chronic kidney disease; N18.30 Chronic kidney disease, stage 3 unspecified; W01.0XXA Fall on same level from slipping, tripping and stumbling without subsequent striking against object, initial encounter

== ENCOUNTER 2024-07-13 14:09 | Inpatient (IN) | payer OTHER ==
[2024-07-13] MEDS ORDERED: NOREPINEPHRINE 8 MG/250 ML-D5W 250 ML ONE (14:22)
[2024-07-13] MEDS ORDERED: EPINEPHrine 1 MG/10 ML Abboject SYRINGE ONE (14:24)
[2024-07-13] MEDS ORDERED: EPINEPHrine 4 MG in Dextrose 5% in Water 250 ML IVP SCH (15:00)
[2024-07-13] MEDS ORDERED: Piperacillin/Tazobactam 4.5 GM VIAL ONE (15:12)
[2024-07-13] MEDS ORDERED: Sodium Chloride 0.9% 100 ML ONE ×2 (15:12→21:23)
[2024-07-13 15:25] LABS: #Basophils 0.04 10x3/uL (0.0-0.2); %Basophils 0.7 % (0.0-1.0); %Eosinophils 0.9 % (0.0-10.0); %Lymphocytes 29.6 % (21.0-51.0); %Monocytes 11.6 % (0.0-10.0); Analyzer IN Cardio ER; Base Excess -4.4 mEq/L (-2.0 to +3.0); Calcium, Ionized (venous) 1.12 mmol/L (1.16-1.32); Chloride (VBG) 106 mmol/L (98-106); Hematocrit 29.4 % (36.0-47.0); Hematocrit-VBG 29 % (36.0-47.0); Hemoglobin 9.3 g/dL (12.0-16.0); Hemoglobin (Hb) 9.9 g/dL (11.7-16.0); Mean Corpuscular HGB CONC 31.6 g/dL (32.0-36.0); Mean Corpuscular Hemoglobin 29.9 pg (27.0-31.0); Mean Corpuscular Volume 94.5 fL (78.0-98.0); Mean Platelet Volume 9.5 fL (7.4-10.4); Platelet Count 221 10x3/uL (130-400); Potassium (VBG) 3.67 mmol/L (3.70-5.30); RBC Distribution Width 12.6 % (11.5-14.5); Red Blood Cell (RBC) Count 3.11 mill/uL (4.20-5.40); Sodium 139 mmol/L (133-146); pH (venous) 7.389 (7.32-7.43)
[2024-07-13 15:43] LABS: INR-International Normal Ratio 0.9; PTT 28.5 sec (22.9-36.1)
[2024-07-13 16:00] LABS: Troponin I Less than 0.010 ng/mL (< 0.028)
[2024-07-13 16:11] LABS: ALT (SGPT) 16 U/L (8-55); AST (SGOT) 29 U/L (5-34); Albumin 3.1 g/dL (3.4-4.8); Alkaline Phosphatase 92 U/L (40-110); Anion Gap 12 mmol/L (10-20); BUN (Urea Nitrogen) 18 mg/dL (9.8-20.1); Bilirubin, Total 0.6 mg/dL (0.2-1.2); Calc. Creatinine Clearance 0 mL/min (70-130); Calcium 8.4 mg/dL (7.8-10.44); Carbon Dioxide 20 mmol/L (23-31); Chloride 109 mmol/L (98-107); Estimated GFR 29; Globulin 2.3 g/dL (2.4-3.5); Glucose 110 mg/dL (80-115); Magnesium 1.6 mg/dL (1.6-2.6); Potassium 3.6 mmol/L (3.5-5.1); Protein, Total 5.4 g/dL (5.8-8.1); Sodium 137 mmol/L (136-145)
[2024-07-13 16:37] LABS: Bacteria/HPF None Seen HPF (None Seen); Bilirubin Negative (Negative); Blood, Urine Negative (Negative); CAUTI Indications for Culture Dysuria,urgency,freq; Clarity Clear (Clear); Glucose, Urine (Dipstick) Normal (Negative); Ketone, Urine Negative (Negative); Leukocyte Negative Leu/uL (Negative); Nitrite Negative (Negative); Protein, Urine (Dipstick) 10 mg/dL (Neg-Trace); RBC/HPF 0-3 HPF (0-3); Specific Gravity, Urine 1.007 (1.002-1.036); Squamous Epithelial 0-3 HPF (0-3); Urobilinogen Normal mg/dL (Less than 2); WBC/HPF 0-3 HPF (0-3)
[2024-07-13 16:39] LABS: Urine Culture Reflex No No
[2024-07-13 18:23] LABS: Amphetamine Not Detected (NotDetected); Barbiturates Screen Not Detected (NotDetected); Benzodiazepine Screen Not Detected (NotDetected); Cocaine Metabolite Screen Not Detected (NotDetected); Methadone Not Detected (NotDetected); Methamphetamine Not Detected (NotDetected); Opiate Screen Not Detected (NotDetected); Oxycodone Screen Detected (NotDetected); Phencyclidine (PCP) Not Detected (NotDetected); THC/Cannabinoid Screen Not Detected (NotDetected); Tricyclic Screen Not Detected (NotDetected)
[2024-07-13] MEDS ORDERED: Glucagon 1 MG/ML KIT IM PRN (18:28)
[2024-07-13] MEDS ORDERED: Insulin Lispro 100 UNIT/ML 10 ML VIAL SC PRN ×2 (18:28)
[2024-07-13] MEDS ORDERED: Acetaminophen 325 MG TAB PO PRN (18:28)
[2024-07-13] MEDS ORDERED: Dextrose 5% in Water 1,000 ML IV PRN (18:28)
[2024-07-13] MEDS ORDERED: Dextrose 50% Abboject 50 ML SYRINGE SLOW IVP PRN (18:28)
[2024-07-13] MEDS: Vancomycin (BATCH) 2 GM in Premix 1 BAG IVPB SCH (19:00)
[2024-07-13 19:01] LABS: Acetaminophen Less than 10 mcg/mL (Less than 10); Alcohol Less than 10.0 mg/dL (Less than 10); Salicylate Less than 8.0 mg/dL (Less than 8.0)
[2024-07-13] MEDS ORDERED: Cefepime 1 GM VIAL ONE (21:23)
[2024-07-13] MEDS ORDERED: Heparin 5,000 UNITS/ML VIAL ONE (21:24)
[2024-07-13] MEDS: Heparin 5,000 UNITS/ML VIAL SC SCH (21:26)
[2024-07-13] MEDS: Cefepime 1 GM in Sodium Chloride 0.9% 100 ML IVPB SCH (21:27)
[2024-07-14] MEDS: Lactated Ringer's 1,000 ML IV SCH (00:46)
[2024-07-14 03:03] VITALS: BMI 4876.0
[2024-07-14 04:54] LABS: #Basophils 0.03 10x3/uL (0.0-0.2); #Eosinophils Less than 0.03 10x3/uL (0.0-0.7); %Basophils 0.6 % (0.0-1.0); %Eosinophils 0.2 % (0.0-10.0); %Lymphocytes 24.9 % (21.0-51.0); %Monocytes 10.9 % (0.0-10.0); %Neutrophils 63.2 % (42.0-75.0); Hematocrit 32.2 % (36.0-47.0); Hemoglobin 10.3 g/dL (12.0-16.0); Mean Corpuscular Hemoglobin 29.9 pg (27.0-31.0); Mean Corpuscular Volume 93.6 fL (78.0-98.0); Mean Platelet Volume 9.5 fL (7.4-10.4); Platelet Count 242 10x3/uL (130-400); RBC Distribution Width 12.6 % (11.5-14.5); Red Blood Cell (RBC) Count 3.44 mill/uL (4.20-5.40)
[2024-07-14 05:18] LABS: Anion Gap 16 mmol/L (10-20); BUN (Urea Nitrogen) 14 mg/dL (9.8-20.1); Calc. Creatinine Clearance 46 mL/min (70-130); Calcium 9.5 mg/dL (7.8-10.44); Carbon Dioxide 21 mmol/L (23-31); Chloride 108 mmol/L (98-107); Estimated GFR 37; Glucose 117 mg/dL (80-115); Potassium 3.6 mmol/L (3.5-5.1); Sodium 141 mmol/L (136-145)
[2024-07-14] MEDS: Vancomycin 1 GM in Premix 1 BAG IVPB SCH (08:04)
[2024-07-14] MEDS: HYDROcodone/Acetaminophen 5/325 mg Tablet PO PRN (08:59)
[2024-07-14] MEDS: FLU (Fluarix Triv) TS24-25(6MOS UP)/PF 45 MCG/0.5 ML Syringe IM ONE (09:00)
[2024-07-14] MEDS: Vancomycin HCl 750 MG in Sodium Chloride 0.9% 250 ML 250 ML IVPB SCH (09:09)
[2024-07-14] MEDS: Lidocaine 4% Patch TD SCH (09:09)
[2024-07-14] MEDS: Cosyntropin 250 MCG VIAL SLOW IVP SCH (09:10)
[2024-07-14] MEDS: Promethazine HCl 12.5 MG in Sodium Chloride 0.9% 50 ML IVPB PRN (12:29)
[2024-07-14 17:16] VITALS: BP 184/94; TEMP 98
[2024-07-14] MEDS ORDERED: Transdermal Patch Removal TOP SCH (21:00)
== END 2024-07-14 17:55 | disposition home or self-care (01) | DRG 640 ==
LOC: ERS 14:09 → ERHOLD 17:44 → OBS 22:28
PROVIDERS: ADMIT Internal Medicine; ATTEND Family Medicine
DX: E86.9 Volume depletion, unspecified (principal); R57.1 Hypovolemic shock; K86.1 Other chronic pancreatitis; I12.9 Hypertensive chronic kidney disease with stage 1 through stage 4 chronic kidney disease, or unspecified chronic kidney disease; E11.22 Type 2 diabetes mellitus with diabetic chronic kidney disease; N18.30 Chronic kidney disease, stage 3 unspecified; F41.8 Other specified anxiety disorders; R00.1 Bradycardia, unspecified; I25.10 Atherosclerotic heart disease of native coronary artery without angina pectoris; E78.5 Hyperlipidemia, unspecified; Z96.612 Presence of left artificial shoulder joint; Z88.5 Allergy status to narcotic agent; Z88.1 Allergy status to other antibiotic agents; Z86.73 Personal history of transient ischemic attack (TIA), and cerebral infarction without residual deficits; Z90.49 Acquired absence of other specified parts of digestive tract; Z90.710 Acquired absence of both cervix and uterus
CPT/HCPCS: 36415; 36416; 36556; 71045; 71250; 80048; 80053; 80306; 80307; 80400; 81001; 82805; 83605; 83735; 84443; 84484; 85025; 85610; 85730; 87040; 87086; 87428; 93005; 94760; 96365; 96366; 96367; 96368; 96375; 96376; 99292; J0171; J0692; J0834; J1644; J2543; J2550; J3370; J7050; J7070

== ENCOUNTER 2025-07-25 10:03 | Emergency (ER) | payer OTHER ==
[2025-07-25 10:35] LABS: #Basophils Less than 0.03 10x3/uL (0.0-0.2); #Eosinophils Less than 0.03 10x3/uL (0.0-0.7); #Monocytes 0.45 10x3/uL (0.11-0.59); #Neutrophils 2.70 10x3/uL (1.40-6.50); %Basophils 0.5 % (0.0-1.0); %Eosinophils 0.0 % (0.0-10.0); %Lymphocytes 26.4 % (21.0-51.0); %Monocytes 10.4 % (0.0-10.0); %Neutrophils 62.5 % (42.0-75.0); Hematocrit 39.4 % (36.0-47.0); Hemoglobin 13.4 g/dL (12.0-16.0); Mean Corpuscular Hemoglobin 30.1 pg (27.0-31.0); Mean Corpuscular Volume 88.5 fL (78.0-98.0); Platelet Count 234 10x3/uL (130-400); Red Blood Cell (RBC) Count 4.45 mill/uL (4.20-5.40); White Blood Cell (WBC) Count 4.32 10x3/uL (4.8-10.8)
[2025-07-25] MEDS ORDERED: Ondansetron PF 4 MG/2 ML Vial ONE (10:39)
[2025-07-25] MEDS ORDERED: diphenhydrAMINE 50 MG/ML VIAL ONE (10:39)
[2025-07-25 10:50] LABS: ALT (SGPT) 12 U/L (Less than 34); AST (SGOT) 20 U/L (11-34); Albumin 4.2 g/dL (3.1-4.5); Alkaline Phosphatase 78 U/L (40-110); Anion Gap 17 mmol/L (10-20); BUN (Urea Nitrogen) 18 mg/dL (9.8-20.1); Bilirubin, Total 1.3 mg/dL (0.3-1.2); Calc. Creatinine Clearance 0 mL/min (70-130); Calcium 10.6 mg/dL (7.8-10.44); Carbon Dioxide 24 mmol/L (23-31); Chloride 105 mmol/L (98-107); Globulin 2.6 g/dL (2.4-3.5); Glucose 125 mg/dL (80-115); Lipase 19 U/L (8-78); Potassium 3.0 mmol/L (3.5-5.1); Sodium 143 mmol/L (136-145)
[2025-07-25] MEDS ORDERED: Iopamidol-370 76% 500 ML MDV (1 ML CHARGE) ONE (11:09)
[2025-07-25] MEDS ORDERED: Droperidol 5 MG/2 ML VIAL ONE (12:02)
[2025-07-25 12:11] LABS: Bacteria/HPF None Seen HPF (None Seen); CAUTI Indications for Culture Pelvic or flank pain; Glucose, Urine (Dipstick) Normal (Negative); Leukocyte Negative Leu/uL (Negative); Protein, Urine (Dipstick) Negative (Neg-Trace); RBC/HPF 0-3 HPF (0-3); Specific Gravity, Urine 1.033 (1.002-1.036); WBC/HPF 0-3 HPF (0-3)
[2025-07-25 12:33] LABS: Urine Culture Reflex No No
== END 2025-07-25 13:01 | disposition home or self-care (01) ==
LOC: ERS 10:03
DX: R10.13 Epigastric pain (principal); R11.2 Nausea with vomiting, unspecified; I12.9 Hypertensive chronic kidney disease with stage 1 through stage 4 chronic kidney disease, or unspecified chronic kidney disease; N18.30 Chronic kidney disease, stage 3 unspecified; E78.5 Hyperlipidemia, unspecified; E11.22 Type 2 diabetes mellitus with diabetic chronic kidney disease; Z79.899 Other long term (current) drug therapy; Z79.51 Long term (current) use of inhaled steroids; Z79.82 Long term (current) use of aspirin
CPT/HCPCS: 74177; 80053; 81001; 83605; 83690; 84484; 85025; 93005; 96361; 96374; 96375; 96376; J1200; J1790; J2270; J2272; J2405; Q9967